=== PATIENT | female | born 1990 | race Caucasian/White ===

== ENCOUNTER 2021-07-19 05:52 | Inpatient (IN) | payer MEDICARE, MEDICAID ==
[~2021-07-19] VITALS: Ht 167.6 cm; Wt 65.2 kg
[2021-07-19] MEDS ORDERED: mag hydrox/Alum hydrox/simeth 30ml oral suspension PO PRN (10:55)
[2021-07-19] MEDS ORDERED: magnesium hydroxide 30ml (MOM) UD suspension PO PRN (10:55)
[2021-07-19] MEDS ORDERED: acetaminophen 325mg tablet PO PRN ×2 (10:55)
[2021-07-19] MEDS ORDERED: NO HOME MEDS (12:07)
[2021-07-19 12:35] VITALS: BP 126/56
--- NOTE | 2021-07-19 13:26 | NUR ---
Admission Note: Pt admitted on a 5150 for DTS/GD from [facility] 5150 states: "Client stated, "I'm going to fuckin kill myself" Hyperverbal. Client in a rage yelling and screaming crying. Asking this to stop. Pt is totally cooperative with admission process; though, she is extremely hyperverbal with pressured speech and states, "Just to let you know, I talk all the time and I can't stop it" Pt continues to endorse S.I. stating, "I don't want to exist. I don't want existence to exist."
[2021-07-19] MEDS: LORazepam 1 MG tablet PO PRN (17:08)
[2021-07-19 19:00] VITALS: BP 104/59
--- NOTE | 2021-07-20 04:08 | NUR ---
Nursing Progress Note: Legal Hold: 5150 Involuntary status for DTS/GD Reason for admission: 5150 states: "Client stated, "I'm going to fuckin kill myself" Hyperverbal. Client in a rage yelling and screaming crying. Asking this to stop. What happened this shift: Patient pacing the unit and responding to IS at the beginning of shift. Pleasant and cooperative with care; no scheduled medication this shift. Patient endorses "thoughts of dying" with no plan disclosed; denies HI and VH. She appears restless when awake. Talks rapidly, difficult to follow thought process at times. She participated in HS snack and remained in the community room looking at the art work and shuffling through games, watching TV and pacing the unit prior to bed. Observed sleeping and does not appear to be having difficulty. Discharge: Patient requires interruption of current crisis in a safe and therapeutic environment.
[2021-07-20 08:00] VITALS: BP 103/65
--- NOTE | 2021-07-20 16:44 | NUR ---
Nursing Progress Note: Lupe Legal Hold: 5150 Involuntary status for DTS/GD Reason for admission: 5150 states: "Client stated, "I'm going to fuckin kill myself"l. Client in a rage yelling and screaming crying. Asking this to stop. What happened this shift: Pt. received sleeping awoke after several attempts to check vitals. Pt. yelled at journalists and other writers what the fuck are you waking me up, Im a night person Pt. refused to participate in assessment and reports Im tired now leave me the hell alone, and no I dont want any medication Pt. presents as agitated and uncooperative. Pt. spent the shift sleeping, refused to go to breakfast, and lunch nor did she participate in snacks. S/I, H/I: Refused to answer A/VH: Refused to answer Sleep: Pt. slept 7.75 hrs per NOC shift and napped throughout the shift. ADL's: Independent Group attendance: NA Were meds taken: No Any med S/E: Denies. None observed. Mental Status Exam Appearance: Disheveled female with tattoos on her face, wearing scrubs Eye contact: Poor Behavior: Verbally aggressive Speech: Pressured Mood: Agitated Affect: Congruent with mood. Thought process: Circumstantial Thought Content: Sleeping Cognition: Unable to assess Insight: Poor Judgment: Poor Interventions PRN's used: None Therapeutic interventions: Provided 1:1 assessment with therapeutic communication and active listening, medication administration/education/monitoring, encouragement of personal hygiene, provided redirection, positive reinforcement, monitored Q15 minute safety checks. Restraints/seclusion/emergency medication: Justification of Continued Inpatient Treatment: Patient in need of crisis interruption and stabilization with medication management and monitoring in a safe and therapeutic environment until stable.
[2021-07-20 19:00] VITALS: BP 112/50
--- NOTE | 2021-07-21 05:03 | NUR ---
Nursing Progress Note: Legal Hold: 5150 Involuntary status for DTS/GD Reason for admission: 5150 states: "Client stated, "I'm going to fuckin kill myself" Hyperverbal. Client in a rage yelling and screaming crying. Asking this to stop. What happened this shift: Patient observed laying in bed and responding to IS at the beginning of shift. Pleasant and cooperative with care; no scheduled meds this shift. Patient remained in bed throughout this shift; provided HS snack in her room and continues to respond to IS while awake. No SI, HI or VH reported this shift. She is observed sleeping and does not appear to be having difficulty. Discharge: Patient requires interruption of current crisis in a safe and therapeutic environment.
[2021-07-21] MEDS: LORazepam 1 MG tablet PO PRN ×2 (07:21→20:18)
[2021-07-21 07:38] VITALS: BP 91/51
[2021-07-21 09:11] LABS: CHOL/HDL RATIO 3.1 (0.00-4.99); CHOLESTEROL 174 MG/DL (0-200); HDL CHOLESTEROL 57 MG/DL (35-60); HEMOGLOBIN A1C 5.6 % (4.5-6.2); LDL CHOLESTEROL 114 MG/DL (50-100); TRIGLYCERIDES 51 MG/DL (20-135)
--- NOTE | 2021-07-21 16:25 | NUR ---
Nursing Progress Note: Lupe Legal Hold: 5150 Involuntary status for DTS/GD Reason for admission: 5150 states: "Client stated, "I'm going to fuckin kill myself"l. Client in a rage yelling and screaming crying. Asking this to stop. What happened this shift: Pt. received awake walking in the price. Pt. requested any medication attempted to assess for s/sx, and she reported Im just going to fu*anita go crazy right now PRN Ativan given. Later 1:1 assessment completed at the bedside; pt. stated no comment when asked about SI, HI she went on to state Ill fu*anita kill myself and everyone else when inquiring about A/V hallucinations. Wood Room Supervisor assessed for discharge plan and she reported Im not fu*anita going anywhere Pt. presents as easily agitated and short tempered. Pt. ate her meals in the dining room with cohorts, she does engage others and is animated. She was observed responding to IS numerous times this shift. She spent her free time pacing or napping. S/I, H/I: Endorses both A/VH: Refused to answer Sleep: Pt. slept 7.0 hrs per NOC shift and napped intermittently this shift. ADL's: Independent Group attendance: NA Were meds taken: Yes Any med S/E: Denies. None observed. Mental Status Exam Appearance: Disheveled female with tattoos on her body and face, wearing scrubs Eye contact: Poor Behavior: Agitated Speech: Hyper verbal at times Mood: Guarded Affect: Congruent with mood. Thought process: Circumstantial Thought Content: Medication Cognition: A/O X3 Insight: Poor Judgment: Poor Interventions PRN's used: Ativan Therapeutic interventions: Provided 1:1 assessment with therapeutic communication and active listening, medication administration/education/monitoring, encouragement of personal hygiene, provided redirection, positive reinforcement, monitored Q15 minute safety checks. Restraints/seclusion/emergency medication: Justification of Continued Inpatient Treatment: Patient in need of crisis interruption and stabilization with medication management and monitoring in a safe and therapeutic environment until stable.
--- NOTE | 2021-07-21 17:02 | NUR ---
Pt. walking up and the unit calling out " I shit my pants" she was provided with shower, hygiene products and clean clothes.
[2021-07-21] MEDS ORDERED: NICOTINE POLACRILEX 2 MG LOZENGE BC PRN (19:05)
[2021-07-21 19:33] VITALS: BP 108/68
[2021-07-21] MEDS: traZODone 50mg tablet PO PRN (20:13)
[2021-07-21] MEDS ORDERED: olanzapine 10mg tablet PO SCH (21:00)
--- NOTE | 2021-07-22 05:16 | NUR ---
Nursing Progress Note: Legal Hold: 5150 Involuntary status for DTS/GD Received report from JOAQUÍN Franks with use of SBAR Reason for admission: 5150 states: "Client stated, "I'm going to fuckin kill myself" Hyperverbal. Client in a rage yelling and screaming crying. Asking this to stop. What happened this shift: Patient social with peers and staff in the price at the beginning of shift. Mostly pleasant and cooperative with care but labile behavior presented. She requested Nicotine; N/O for Nicotine lozenge PRN q2h and patient later requested to start Nicotine patch. Patient was to start Zyprexa this shift, however, this upset her and she reported she previously was on it and she had gained a bunch of weight and refused the med. Patient then began reporting delusional content about eating people brains d/t Zyprexa. She denied SI, stating, "just homicidal toward the fuckers that didn't listen to me." She continues to respond to IS between conversations. PRN Ativan and Trazodone provided. Patient participated in HS snack prior to bed; observed sleeping and does not appear to be having difficulty. Discharge: Patient requires interruption of current crisis in a safe and therapeutic environment.
[2021-07-22 08:00] VITALS: BP 109/67
--- NOTE | 2021-07-22 09:31 | NUR ---
Pt attended group today. We talked about Self Nurturing about how to curate spaces of nurture/self-care for themselves. We then did Vision board visualizing safe/nurture places and words. At first Pt. appeared to be scoffing at the instructions for the group Vision pages as she could be heard laughing and making silly remarks. Once the group got going she listened well and got right into the acitivity of looking for pictures, cutting and pasting them on a page. She sat at her own table and did not interact with anyone else while she was working on the activity. When she was done she asked what the papers were all about that I had given out about he topic of Self Nurture. She began to get a bit agitated when she started expressing that she wasn't sure what she was supposed to do with these papers. This Hammer Fitter talked her through it and it seemed to dispel her anxiety and she got to work quietly again. When she was done with her Vision Page depicting safety/nurture she was asked to share with the group. She declined. This Hammer Fitter remarked on how she must find the beach/ocean a soothing place as her page was covered in pictures of the ocean. At this point she got up from her table and stated, "No I hate it" and left the group. Her thought content and thought process appeared WNL. She was alert and oriented X 4. Melly Campoverde LCSW
--- NOTE | 2021-07-22 13:43 | NUR ---
Pt refused lab draw for lipid panel and Hemoglobin A1C
[2021-07-22] MEDS: LORazepam 1 MG tablet PO PRN ×2 (13:47→20:09)
--- NOTE | 2021-07-22 17:53 | NUR ---
Nursing Progress Note Legal Hold: 5150 Involuntary status for DTS/GD Reason for admission: 5150 states: "Client stated, "I'm going to fuckin kill myself"l. Client in a rage yelling and screaming crying. Asking this to stop. What happened this shift: Received Pt in bed awake w/o distress at shift change. Pt was cooperative with vitals and was pacing halls and stacking books in community room. Pt did not have scheduled meds this shift, but did receive Ativan prn do to agitation. Pt showered today and attended groups and was in community room watching TV with others. Seen pacing and talking/laughing to self at times, and appeared to be responding to internal stimuli. In AM Pt was not cooperative with AM assessments and was angry about having Zyprexa ordered, which she has gained weight on in past and was angry about being called by first name; Pt only wants to be called [place]. S/I, H/I: Endorses both A/VH: Refused to answer Sleep: None this shift ADL's: Independent Group attendance: yes Were meds taken: Yes Any med S/E: Denies. None observed Mental Status Exam Appearance: Casual in unit sweats Eye contact: Poor Behavior: Agitated at times Speech: Hyper verbal and pressured at times Mood: Guarded Affect: Elevated Thought process: Circumstantial Thought Content: Being offended Cognition: A/O X3 Insight: Poor Judgment: Poor Interventions PRN's used: Ativan Therapeutic interventions: Provided 1:1 assessment with therapeutic communication and active listening, medication administration/education/monitoring, encouragement of personal hygiene, provided redirection, positive reinforcement, monitored Q15 minute safety checks. Restraints/seclusion/emergency medication: Justification of Continued Inpatient Treatment: Patient in need of crisis interruption and stabilization with medication management and monitoring in a safe and therapeutic environment until stable.
[2021-07-22 19:34] VITALS: BP 120/63
[2021-07-22] MEDS: traZODone 50mg tablet PO PRN (20:09)
[2021-07-22] MEDS: aripiprazole 5mg tablet PO SCH (20:09)
--- NOTE | 2021-07-23 04:35 | NUR ---
Nursing Progress Note: Legal Hold: 5250 Involuntary status for DTS/GD Received report from JOAQUÍN Deras with use of SBAR Reason for admission: 5150 states: "Client stated, "I'm going to fuckin kill myself" Hyperverbal. Client in a rage yelling and screaming crying. Asking this to stop. What happened this shift: Patient social and watching TV at the beginning of shift. Pleasant and cooperative with care; compliant with medication. Abilify started this shift; no ASE observed or reported. PRN Ativan and Trazodone provided. Patient denies SI, HI this shift but stated, "you can put a bullet right here and then take it back out," while pointing at her syn[employer]. She continues to respond to IS and restless while she's awake. Patient participated in HS snack prior to bed; observed sleeping and does not appear to be having difficulty. Discharge: Patient requires interruption of current crisis in a safe and therapeutic environment.
--- NOTE | 2021-07-23 08:00 | NUR ---
Initial :Pt admitted w/ suicidal ideations per EMR. Currently on Regular diet w/ mostly 100% intake of meals and participates in some snacks per documentation. [facility] 07/21 w/ PRN bowel care available. No nutrition intervention implemented at this time, will continue to monitor. Recs: 1. Continue Regular diet as tolerated 2. Bowel care per rx 3. Weekly wts Addendum: 07/23/21 at [address] Amended: Links added.
[2021-07-23] MEDS: LORazepam 1 MG tablet PO PRN ×2 (08:26→20:39)
--- NOTE | 2021-07-23 16:53 | NUR ---
Nursing Progress Note: Lupe Legal Hold: 5150 Involuntary status for DTS/GD Report received from DANIELLE Craft with use of SBAR Reason for admission: 5150 states: "Client stated, "I'm going to fuckin kill myself"l. Client in a rage yelling and screaming crying. Asking this to stop. What happened this shift: Patient is resting quietly in bed at the start of the shift. Somewhat resistive to 1:1 assessment but does consent with re-approach. Patient requests morning medication and says a list of medications which she is not on. PRN Ativan given for anxiety which appears helpful. Speech is clear when making requests but frequently makes bizarre statements and chirping/ growling sounds. S/I, H/I: Endorses both A/VH: Endorses both Sleep: None this shift ADL's: Independent Group attendance: yes Were meds taken: Yes Any med S/E: None observed or reported Mental Status Exam Appearance: Woman with short uneven haircut, disheveled, wearing green lip color, green eye liner and green unit scrubs. Eye contact: Good Behavior: Bizarre, social Speech: Clear, hyper verbal at times Mood: Good. Affect: Animated Thought process: Circumstantial Thought Content: Birds Cognition: A/O x2 to self and time Insight: Poor Judgment: Poor Interventions PRN's used: Ativan Therapeutic interventions: Provided 1:1 assessment with therapeutic communication and active listening, medication administration/education/monitoring, encouragement of personal hygiene, provided redirection, positive reinforcement, monitored Q15 minute safety checks. Restraints/seclusion/emergency medication: Justification of Continued Inpatient Treatment: Patient in need of crisis interruption and stabilization with medication management and monitoring in a safe and therapeutic environment until stable.
[2021-07-23 19:11] VITALS: BP 104/58
[2021-07-23] MEDS: aripiprazole 5mg tablet PO SCH (20:39)
[2021-07-23] MEDS: traZODone 50mg tablet PO PRN (20:39)
--- NOTE | 2021-07-24 05:50 | NUR ---
Nursing Progress Note: Legal Hold: 5250 Involuntary status for DTS/GD Received report from JOAQUÍN Deras with use of SBAR Reason for admission: 5150 states: "Client stated, "I'm going to fuckin kill myself" Hyperverbal. Client in a rage yelling and screaming crying. Asking this to stop. What happened this shift: Patient in her room awake at the beginning of shift. Pleasant and cooperative with care; compliant with medication. PRN Ativan and Trazodone provided. Patient denies SI and HI. Continues to respond to IS and punching at the air. Patient participated in HS snack and social with peers prior to bed; observed sleeping and does not appear to be having difficulty. Discharge: Patient requires interruption of current crisis in a safe and therapeutic environment.
[2021-07-24 07:16] VITALS: BP 105/48
[2021-07-24] MEDS: LORazepam 1 MG tablet PO PRN ×2 (08:43→14:55)
--- NOTE | 2021-07-24 15:53 | NUR ---
Nursing Progress Note: Lupe Legal Hold: 5150 Involuntary status for DTS/GD Report received from DANIELLE Craft with use of SBAR Reason for admission: 5150 states: "Client stated, "I'm going to fuckin kill myself"l. Client in a rage yelling and screaming crying. Asking this to stop. What happened this shift: Patient is awake in her room at the start of the shift. Paces the unit and socializes with peers. Hyper verbal at times and makes delusional disorganized statements. Compliant with 1:1 assessment. Requests PRN Ativan for anxiety which appears effective. Talks about wanting to transfer to another facility. States, I want to be discharged to [facility] to either [facility] which is a puff or [facility]. At lunch patient is noted trying to take food off of her neighbors tray but is redirected. In the afternoon the patient complains of generalized aches and requests Tylenol. Patient is then noted dancing while walking and listening to headphones. S/I, H/I: Denies A/VH: Endorses both Sleep: None this shift ADL's: Independent Group attendance: yes Were meds taken: Yes Any med S/E: None observed or reported Mental Status Exam Appearance: Woman with short uneven haircut, disheveled, wearing green lip color, and green unit scrubs. Eye contact: Good Behavior: Bizarre, social, cooperative Speech: Clear, hyper verbal at times Mood: Great. Affect: Animated Thought process: Circumstantial Thought Content: Wanting to discharge to [facility]. Cognition: A/O x3 to self, time and place Insight: Poor Judgment: Poor Interventions PRN's used: Ativan Therapeutic interventions: Provided 1:1 assessment with therapeutic communication and active listening, medication administration/education/monitoring, encouragement of personal hygiene, provided redirection, positive reinforcement, monitored Q15 minute safety checks. Restraints/seclusion/emergency medication: Justification of Continued Inpatient Treatment: Patient in need of crisis interruption and stabilization with medication management and monitoring in a safe and therapeutic environment until stable.
[2021-07-24 19:55] VITALS: BP 104/63
[2021-07-24] MEDS: aripiprazole 5mg tablet PO SCH (20:31)
[2021-07-24] MEDS: traZODone 50mg tablet PO PRN (20:31)
--- NOTE | 2021-07-24 20:44 | NUR ---
Client was crushing, and attempting to snort Abilify, while in the group room with another client. This was observed on the monitor. JESUS Davila collected crushed Abilify and directed client to her room. This RN spoke with client regarding an attempt to crush Nicotine Lozenger. Informed client this was improper method of administration. Notified Dr. Zak Castle. Will continue to monitor.
--- NOTE | 2021-07-24 21:06 | NUR ---
Nursing Progress Note: Lupe Dominguez Legal Hold: 5150 Involuntary status for DTS/GD Reason for admission: 5150 states: "Client stated, "I'm going to fuckin kill myself"l. Client in a rage yelling and screaming crying. Asking this to stop. What happened this shift: Patient is awake on the unit at the start of the shift. Cooperative with 1:1 assessment. Appears elevated AEB loud voice and pressured speech. Continues to endorse AH/ VH. States, I see things and hear things all the time. Paces the price and socializes/ laughs with peers after dinner. Noted watching TV in the rec room. PRN Trazadone given for sleep. After medication is administered charge nurse reports seeing the patient on the camera crushing and snorting something. Tech finds the patient snorting blue powder which is alleged to be her evening pills that she pocketed and spit back out. Patient is educated on the importance of her medication and of taking it PO as ordered. S/I, H/I: Denies A/VH: Endorses both Sleep: See sleep assessment ADL's: Independent Group attendance: N/A Were meds taken: Yes Any med S/E: None observed or reported Mental Status Exam Appearance: Woman with short uneven haircut, disheveled, wearing green lip color, and green unit scrubs. Eye contact: Good Behavior: Cooperative, social, elevated Speech: Clear, hyper verbal at times Mood: Good. Affect: Animated Thought process: Circumstantial Thought Content: Meeting needs Cognition: A/O x3 to self, time and place Insight: Poor Judgment: Poor Interventions PRN's used: Trazadone Therapeutic interventions: Provided 1:1 assessment with therapeutic communication and active listening, medication administration/education/monitoring, encouragement of personal hygiene, provided redirection, positive reinforcement, monitored Q15 minute safety checks. Restraints/seclusion/emergency medication: Justification of Continued Inpatient Treatment: Patient in need of crisis interruption and stabilization with medication management and monitoring in a safe and therapeutic environment until stable.
--- NOTE | 2021-07-25 02:03 | NUR ---
Progress Note: P: 5150 states: "Client stated, "I'm going to fuckin kill myself" Hyperverbal. Client in a rage yelling and screaming crying. Asking this to stop. I: Provided 1:1 assessment with therapeutic communication and active listening, medication administration/education/monitoring, encouragement of personal hygiene, provided redirection, positive reinforcement, monitored Q15 minute safety checks. R: Received pt asleep in bed. Report received from Dahiana YANES. Apparently, earlier in the evening, staff found this pt trying to snort her pm abilify and trazodone. Pt tried to hide what she was doing for a while and eventually went to her bed and fell asleep. P: Patient in need of crisis interruption and stabilization with medication management and monitoring in a safe and therapeutic environment until stable.
[2021-07-25 07:40] VITALS: BP 105/69
--- NOTE | 2021-07-25 13:29 | NUR ---
5250 released for GD, patient stated in the hearing "I [facility] stay [facility], I have food stamps and $2000. in my bank account that I can buy clothes if I need the, I get a check each week for about 100.00 that i oquendo at the [employer]". "I have lived in [facility] as well, the is food there and I have clothes".
--- NOTE | 2021-07-25 13:48 | NUR ---
DCP Presenting Issues: Pt attended 5250 Hearing and was released from 5250 Hold. Care team requested dcp assistance for pt. Interventions: Clinician met w/pt and engaged her in dcp activities, per session pt agreed to sign Vol stay to allow SS team to coordinate an aftercare plan & transportation for her to return to [facility]. Clinician had t/c with UsmanLAVONNE @ [facility], and obtained an intake appointment for pt to establish services @ [facility]. [place] pile driver will be here @ 1PM to sweet pickled fruit maker pt and take her back to [facility]. Pt uses [facility] in [place]. Plan: Pt to d/c at 1:pm tomorrow. Jennifer Garcia LCSW Addendum: 07/25/21 at 1355 by Jennifer Garcia Amended: Links added.
--- NOTE | 2021-07-25 14:38 | NUR ---
Nursing Progress Note: Lupe Dominguez Legal Hold: 5150 Involuntary status for DTS/GD Report received from DANIELLE Craft with use of SBAR Reason for admission: 5150 states: "Client stated, "I'm going to fuckin kill myself!". Client in a rage yelling and screaming crying. Asking this to stop. What happened this shift: Patient is awake pacing the unit at the start of the shift. Socializes with select peers. Cooperative with 1:1 assessment. Patient appears elevated AEB frequent loud laughter and pressured speech. Noted skipping down the price with headphones on. States enthusiastically, Gotta put some pep in your step! Disorganized at times but is generally linear when making requests and is able to make her needs known. Passing gas in the price and saying to peers, Here! Smell that one! S/I, H/I: Denies A/VH: Endorses both Sleep: None noted this shift ADL's: Independent Group attendance: Yes Were meds taken: Yes Any med S/E: None observed or reported Mental Status Exam Appearance: Woman with short uneven haircut, disheveled, wearing green lip color, and green unit scrubs. Eye contact: Good Behavior: Cooperative, social, elevated Speech: Clear, hyper verbal at times Mood: Great! Affect: Animated Thought process: Circumstantial, disorganized Thought Content: Meeting needs Cognition: A/O x3 to self, time and place Insight: Poor Judgment: Poor Interventions PRN's used: None Therapeutic interventions: Provided 1:1 assessment with therapeutic communication and active listening, medication administration/education/monitoring, encouragement of personal hygiene, provided redirection, positive reinforcement, monitored Q15 minute safety checks. Restraints/seclusion/emergency medication: Justification of Continued Inpatient Treatment: Patient in need of crisis interruption and stabilization with medication management and monitoring in a safe and therapeutic environment until stable.
[2021-07-25 20:00] VITALS: BP 106/72
[2021-07-25] MEDS: LORazepam 1 MG tablet PO PRN (20:42)
[2021-07-25] MEDS: aripiprazole 5mg tablet PO SCH (20:42)
[2021-07-25] MEDS: traZODone 50mg tablet PO PRN (20:42)
--- NOTE | 2021-07-25 21:09 | NUR ---
Nursing Progress Note: Lupe Dominguez Legal Hold: 5150 Involuntary status for DTS/GD Reason for admission: 5150 states: "Client stated, "I'm going to fuckin kill myself!". Client in a rage yelling and screaming crying. Asking this to stop. What happened this shift: Patient is awake socializing and pacing in the hallway at the start of the shift. Becomes intrusive when another patient begins yelling and staff is trying to redirect. Attempts to calm the other patient but is redirected and educated on safety on the unit. Requests PRN Ativan and Trazadone at HS. Makes bizarre statements at times and laughs at inappropriate times. S/I, H/I: Denies A/VH: Denies Sleep: See sleep assessment ADL's: Independent Group attendance: N/A Were meds taken: Yes Any med S/E: None observed or reported Mental Status Exam Appearance: Woman with short uneven haircut, disheveled, wearing green lip color, and green unit scrubs. Eye contact: Good Behavior: Cooperative, social, elevated Speech: Clear, hyper verbal at times Mood: Elevated Affect: Animated Thought process: Circumstantial, disorganized Thought Content: Meeting needs Cognition: A/O x3 to self, time and place Insight: Poor Judgment: Poor Interventions PRN's used: Ativan, Trazadone Therapeutic interventions: Provided 1:1 assessment with therapeutic communication and active listening, medication administration/education/monitoring, encouragement of personal hygiene, provided redirection, positive reinforcement, monitored Q15 minute safety checks. Restraints/seclusion/emergency medication: None Justification of Continued Inpatient Treatment: Patient in need of crisis interruption and stabilization with medication management and monitoring in a safe and therapeutic environment until stable.
[2021-07-26] MEDS ORDERED: ARIP5TAB60 PO (06:15)
[2021-07-26] MEDS ORDERED: TRAZ-251 PO (06:15)
[2021-07-26] MEDS ORDERED: NICO-907 BC (06:15)
[2021-07-26 08:00] VITALS: BP 133/79
--- NOTE | 2021-07-26 12:39 | NUR ---
Nursing Discharge Note Pt discharged from [facility] at 1205 Pt escorted down to hook up driver/transport from [facility] to take her back home. Pt in euthymic mood, looking forward to being discharged and going home. Pt denies SI/HI or psychotic Sxs and has been improving since admission. Pt in no acute physical or emotional distress. Pts belongings returned to her, and she understands her discharge plan. Pt denied needing nicotine replacement.
== END 2021-07-26 12:00 | disposition home or self-care (01) | DRG 885 ==
LOC: ADULT MH 10:39
PROVIDERS: ADMIT Psychiatry & Neurology Psychiatry; ATTEND Psychiatry & Neurology Psychiatry
DX: F25.9 Schizoaffective disorder, unspecified (principal); R45.851 Suicidal ideations; F39 Unspecified mood [affective] disorder; F17.200 Nicotine dependence, unspecified, uncomplicated; F15.10 Other stimulant abuse, uncomplicated; F31.9 Bipolar disorder, unspecified; Z59.00 Homelessness unspecified; Z71.6 Tobacco abuse counseling
CPT/HCPCS: 36415; 80061; 83036; 84443; 87081